=== PATIENT | female | born 1990 | race Asian ===

== ENCOUNTER 2016-10-11 14:50 | Emergency (ER) | payer OTHER ==
[2016-10-11] MEDS ORDERED: Adenosine* 3 MG/ML VIAL ONE (15:05)
[2016-10-11] MEDS ORDERED: NS 0.9% 1000 ML* 1,000 ML IV ONE (15:18)
[2016-10-11] MEDS ORDERED: Adenosine SYRINGE* 6 MG/2 ML IV PUSH ONE (15:18)
[2016-10-11] MEDS ORDERED: Adenosine* 3 MG/ML VIAL IV PUSH ONE (15:19)
[2016-10-11 15:26] LABS: Hematocrit 42 % (35-47); Mean Corpuscular HGB Conc 34 g/dl (31-36); Mean Corpuscular Hemoglobin 32 pg (27-31); Mean Corpuscular Volume 95 fL (80-97); Mean Platelet Volume 8 um3 (7.4-10.4); Red Blood Count 4.38 10^6/ul (4.0-5.4); Red Cell Distribution Width 12 % (10.5-15); White Blood Count 9.7 10^3/ul (3.5-10.8)
[2016-10-11 15:52] LABS: TSH (Thyroid Stimulating Horm) 0.96 mcIU/mL (0.34-5.60)
[2016-10-11 16:12] LABS: Albumin 4.3 g/dL (3.2-5.2); BUN/Creatinine Ratio 17.6 (8-20); Calcium 9.2 mg/dL (8.6-10.3); EGFR Non-African American 80.8 (>60); Globulin 3.3 g/dL (2-4); Potassium 3.7 mmol/L (3.5-5.0); Total Bilirubin 0.6 mg/dL (0.2-1.0); Total Protein 7.6 g/dL (6.4-8.9)
[2016-10-11 16:57] VITALS: BP 104/64
--- NOTE | 2016-10-11 18:07 | ED ---
Bam Vanessa Billy, scribed for Nolberto Ortiz MD on 10/11/16 at 1510 . Palpitations / Dysrhythmia - HPI Summary HPI Summary: Patient is a 25 year-old female coming to [facility] for evaluation of a rapid heart rate. 20 minutes prior to being seen in the ED, she states that she began feeling very unwell. She reports CP and SOB. She takes metoprolol and has a history of a similar previous episode. In fact, she has had intermittent episodes since she was a young child, although today is the worst that it has ever been. She is wearing an implantable monitor and sees Dr. Vallejo. - History of Current Complaint Chief Complaint: EDDysrhythmPalp Time Seen by Provider: 10/11/16 15:03 Hx Obtained From: Patient Onset/Duration: Gradual Onset Timing: Constant Severity Initially: Moderate Severity Currently: Moderate Character: Fast Aggravating: Nothing Alleviating: Nothing Associated Signs & Symptoms: Chest Pain, Shortness of Breath - Allergy/Home Medications Allergies/Adverse Reactions: Allergies Allergy/AdvReac Type Severity Reaction Status Date / Time Penicillins Allergy Unknown Verified 10/11/16 15:17 Reaction Details PMH/Surg Hx/FS Hx/Imm Hx Endocrine/Hematology History: Denies: Hx Diabetes Psychiatric History: Denies: Hx Eating Disorder, Hx of Violent Episodes Against Others - Immunization History Date of Tetanus Vaccine: UTD Date of Influenza Vaccine: unk Infectious Disease History: Denies: Traveled Outside the [place] in Last 30 Days - Family History Family History: Family history is negative for EtOH abuse. - Social History Alcohol Use: Weekly Alcohol Amount: 3-4 Substance Use Type: Reports: None Smoking Status (MU): Never Smoked Tobacco Review of Systems Positive: Palpitations, Chest Pain Positive: Shortness Of Breath All Other Systems Reviewed And Are Negative: Yes Physical Exam - Summary Physical Exam Summary: The patient is well-nourished in no acute distress and in no acute pain. The skin is warm and dry and skin color reflects adequate perfusion. HEENT: The head is normocephalic and atraumatic. The pupils are equal and reactive. The conjunctivae are clear and without drainage. Nares are patent and without drainage. Mouth reveals moist mucous membranes and the throat is without erythema and exudate. The external ears are intact. The ear canals are patent and without drainage. The tympanic membranes are intact. Neck is supple with full range of motion and non-tender. There are no carotid bruits. There is no neck vein distension. Respiratory: Chest is non-tender. Lungs are clear to auscultation and breath sounds are symmetrical and equal. Cardiovascular: Heart is tachycardic. There is no murmur or rub auscultated. There is no peripheral edema and pulses are symmetrical and equal. Abdomen: The abdomen is soft and non-tender. There are normal bowel sounds heard in all four quadrants and there is no organomegaly palpated. Musculoskeletal: There is no back pain noted. Extremities are non-tender with full range of motion. There is good capillary refill. There is no peripheral edema or calf tenderness elicited. Neurological: Patient is alert and oriented to person, place and time. The patient has symmetrical motor strength in all four extremities. Cranial nerves are grossly intact. Deep tendon reflexes are symmetrical and equal in all four extremities. Psychiatric: The patient has an appropriate affect and does not exhibit any anxiety or depression. Triage Information Reviewed: Yes Vital Signs On Initial Exam: Initial Vitals Temp Pulse Resp BP 97.7 F 213 20 148/96 10/11/16 14:56 10/11/16 14:56 10/11/16 14:56 10/11/16 14:56 Vital Signs Reviewed: Yes Diagnostics - Vital Signs Vital Signs Temp Pulse Resp BP 10/11/16 14:56 97.7 F 213 20 148/96 - Laboratory Lab Results: Lab Results 10/11/16 10/11/16 10/11/16 Range/Units 15:05 15:05 15:05 WBC 9.7 (3.5-10.8) 10^3/ul RBC 4.38 (4.0-5.4) 10^6/ul Hgb 14.0 (12.0-16.0) g/dl Hct 42 (35-47) % MCV 95 (80-97) fL MCH 32 H (27-31) pg MCHC 34 (31-36) g/dl RDW 12 (10.5-15) % Plt Count 321 (150-450) 10^3/ul MPV 8 (7.4-10.4) um3 Neut % (Auto) 52.0 (38-83) % Lymph % (Auto) 35.9 (25-47) % [place] % (Auto) 8.6 (1-9) % Eos % (Auto) 2.6 (0-6) % Baso % (Auto) 0.9 (0-2) % Absolute Neuts (auto) 5.0 (1.5-7.7) 10^3/ul Absolute Lymphs (auto) 3.5 (1.0-4.8) 10^3/ul Absolute Monos (auto) 0.8 (0-0.8) 10^3/ul Absolute Eos (auto) 0.2 (0-0.6) 10^3/ul Absolute Basos (auto) 0.1 (0-0.2) 10^3/ul Absolute Nucleated RBC 0.01 10^3/ul Nucleated RBC % 0.1 Sodium 136 (133-145) mmol/L Potassium 3.7 (3.5-5.0) mmol/L Chloride 104 (101-111) mmol/L Carbon Dioxide 22 (22-32) mmol/L Anion Gap 10 (2-11) mmol/L BUN 15 (6-24) mg/dL Creatinine 0.85 (0.51-0.95) mg/dL Est GFR ( Amer) 104.0 (>60) Est GFR (Non-Af Amer) 80.8 (>60) BUN/Creatinine Ratio 17.6 (8-20) Glucose 109 H (70-100) mg/dL Lactic Acid 1.9 (0.5-2.0) mmol/L Calcium 9.2 (8.6-10.3) mg/dL Magnesium 2.0 (1.9-2.7) mg/dL Total Bilirubin 0.60 (0.2-1.0) mg/dL AST 15 (13-39) U/L ALT 10 (7-52) U/L Alkaline Phosphatase 33 L (34-104) U/L Troponin I 0.00 (<0.04) ng/mL Total Protein 7.6 (6.4-8.9) g/dL Albumin 4.3 (3.2-5.2) g/dL Globulin 3.3 (2-4) g/dL Albumin/Globulin Ratio 1.3 (1-3) TSH 0.96 (0.34-5.60) mcIU/mL Result Diagrams: 10/11/16 15:05 10/11/16 15:05 Lab Statement: Any lab studies that have been ordered have been reviewed, and results considered in the medical decision making process. - EKG 1502 EKG Interpretation: SVT 207 bpm 1514 EKG Interpretation: Post-adenosine, NSR 90 bpm, normal QT interval Re-Evaluation - Re-Evaluation First Eval Re-Evaluation Time: 16:27 Change: Improved Comment: She is feeling much better at this time. Second Eval Re-Evaluation Time: 16:33 Comment: Consult with Dr. Hannon discussed with the patient, including his instructions to increased metoprolol dosage, restrict caffeine and alcohol consumption, and to follow up with Dr. Vallejo. The patient understands and agrees with the plan. Course/Dx - Course Assessment/Plan: 25 year-old female coming to the ED for evaluation of rapid heart rate. Carotid massages attempted, unsuccessful. Patient was given 6mg adenosine followed by 12mg adenosine for her rapid heart rate. She tolerated the procedure well and converted from SVT to NSR. She was placed on a monitor and observed for 90 minutes with no return of her symptoms. The case was discussed with Dr. Hannon from cardiology, who recommends for the patient to be discharged home with an increase in her metoprolol dosage. She is to avoid caffeine and alcohol consumption in the meantime, and she was instructed to follow up with Dr. Vallejo. These instructions were communicated to the patient , who voiced an understanding. - Diagnoses Differential Diagnosis/HQI/PQRI: Positive: Cardiomyopathy, Hypokalemia, Paroxymal SVT, Other - atrial fibrillation Provider Diagnoses: supraventricular tachycardia, resolved - Physician Notifications Discussed Care Of Patient With: Dr. Hannon (certified peer specialist) at 1625: recommends increasing metoprolol to 50mg ER, and to follow up with Dr. Vallejo. - Critical Care Time Critical Care Time: 30-74 min - 30 minutes Discharge - Discharge Plan Condition: Stable Disposition: HOME Prescriptions: Metoprolol Succinate XL TAB* [Toprol XL TAB*] 50 mg PO DAILY #30 tab.xl Patient Education Materials: Supraventricular Tachycardia (ED) Referrals: Zuri Florian DO [Primary Care Provider] - Additional Instructions: FOLLOW UP WITH DR. VALLEJO. DO NOT CONSUME CAFFEINE OR ALCOHOL IN THE MEANTIME. TAKE MEDICATIONS DIRECTED. INCREASE METOPROLOL TO 50 MG A DAY. The documentation as recorded by the akhilibBam santana Billy accurately reflects the service I personally performed and the decisions made by me, Nolberto Ortiz MD.
== END 2016-10-11 16:57 | disposition home or self-care (01) ==
LOC: ED 14:50
DX: I47.1 Supraventricular tachycardia (principal); Z88.0 Allergy status to penicillin
CPT/HCPCS: 36415; 80053; 83605; 83735; 84443; 84484; 85025; 93005; 96374; 96375; 99285; J0153

== ENCOUNTER 2017-04-17 12:24 | Emergency (ER) | payer OTHER ==
[2017-04-17] MEDS ORDERED: NS 0.9% 1000 ML* 2,000 ML IV ONE (13:10)
[2017-04-17 13:43] LABS: Hematocrit 41 % (35-47); Mean Corpuscular HGB Conc 34 g/dl (31-36); Mean Corpuscular Hemoglobin 33 pg (27-31); Mean Corpuscular Volume 96 fL (80-97); Mean Platelet Volume 8 um3 (7.4-10.4); Red Blood Count 4.28 10^6/ul (4.0-5.4); Red Cell Distribution Width 12 % (10.5-15)
[2017-04-17 13:59] LABS: ALT 19 U/L (7-52); Albumin 3.7 g/dL (3.2-5.2); Alkaline Phosphatase 25 U/L (34-104); BUN/Creatinine Ratio 13.9 (8-20); Blood Urea Nitrogen 10 mg/dL (6-24); CO2 Carbon Dioxide 23 mmol/L (22-32); Calcium 8.6 mg/dL (8.6-10.3); Chloride 108 mmol/L (101-111); EGFR Non-African American 97.2 (>60); Globulin 2.6 g/dL (2-4); Glucose 87 mg/dL (70-100); Magnesium 2.2 mg/dL (1.9-2.7); Sodium 137 mmol/L (133-145); Total Protein 6.3 g/dL (6.4-8.9)
[2017-04-17 14:25] LABS: Anion Gap 6 mmol/L (2-11)
[2017-04-17 14:38] LABS: TSH (Thyroid Stimulating Horm) 0.61 mcIU/mL (0.34-5.60)
--- NOTE | 2017-04-17 14:55 | ED ---
Jaswant Vanessa Thomas, scribed for Willi Mesa MD on 04/17/17 at 1324 . Palpitations / Dysrhythmia - HPI Summary HPI Summary: The pt is a 26 y/o F with a Hx of SVT BIBA after she had an episode of racing palpitations about an hour ago. The patient noted mild chest discomfort during this episode of palpitations. The patient attempted to resolve the palpitations with vagal maneuvers but she was unsuccessful. The palpitations resolved when she was given Adenosine 6mg by EMS at 12:09. The patient is on Metoprolol 50mg. She has been offered an ablation by her user interface engineer Dr. Zimmer, but the patient has not yet made a decision to schedule the surgery. - History of Current Complaint Chief Complaint: EDChestPainROMI Time Seen by Provider: 04/17/17 12:47 Hx Obtained From: Patient Onset/Duration: Lasting Hours - 1, Resolved Timing: Intermittent Episodes Lasting: Severity Currently: None Aggravating: Nothing Alleviating: Other - Adenosine Associated Signs & Symptoms: Vomiting - Mild chest discomfort - Allergy/Home Medications Allergies/Adverse Reactions: Allergies Allergy/AdvReac Type Severity Reaction Status Date / Time Penicillins Allergy Unknown Verified 10/11/16 15:17 Reaction Details PMH/Surg Hx/FS Hx/Imm Hx Previously Healthy: No Endocrine/Hematology History: Denies: Hx Diabetes Cardiovascular History: Reports: Hx Supraventricular Ventricular Tachycardia Psychiatric History: Denies: Hx Eating Disorder, Hx of Violent Episodes Against Others - Immunization History Date of Tetanus Vaccine: UTD Date of Influenza Vaccine: NO Infectious Disease History: No Infectious Disease History: Denies: Traveled Outside the [place] in Last 30 Days - Family History Known Family History: Positive: Other - neg: EToH abuse Family History: Family history is negative for EtOH abuse. - Social History Alcohol Use: Weekly Alcohol Amount: 3-4 Substance Use Type: Reports: None Smoking Status (MU): Never Smoked Tobacco Review of Systems Negative: Fever Positive: Palpitations, Other - Mild chest discomfort All Other Systems Reviewed And Are Negative: Yes Physical Exam - Summary Physical Exam Summary: VITAL SIGNS: Reviewed. GENERAL: Patient is a well-developed and nourished female who is lying comfortable in the stretcher. Patient is not in any acute respiratory distress. HEAD AND FACE: No signs of trauma. No ecchymosis, hematomas or skull depressions. No sinus tenderness. EYES: PERRLA, EOMI x 2, No injected conjunctiva, no nystagmus. EARS: Hearing grossly intact. Ear canals and tympanic membranes are within normal limits. MOUTH: Oropharynx within normal limits. NECK: Supple, trachea is midline, no adenopathy, no JVD, no carotid bruit, no c- spine tenderness, neck with full ROM. CHEST: Symmetric, no tenderness at palpation LUNGS: Clear to auscultation bilaterally. No wheezing or crackles. CVS: Regular rate and rhythm, S1 and S2 present, no murmurs or gallops appreciated. ABDOMEN: Soft, non-tender. No signs of distention. No rebound no guarding, and no masses palpated. Bowel sounds are normal. EXTREMITIES: FROM in all major joints, no edema, no cyanosis or clubbing. NEURO: Alert and oriented x 3. No acute neurological deficits. Speech is normal and follows commands. SKIN: Dry and warm Triage Information Reviewed: Yes Vital Signs On Initial Exam: Initial Vitals Temp Pulse Resp BP Pulse Ox 98.5 F 83 17 97/78 98 04/17/17 12:29 04/17/17 12:29 04/17/17 12:29 04/17/17 12:29 04/17/17 12:29 Vital Signs Reviewed: Yes - Michael Coma Scale Coma Scale Total: 15 Diagnostics - Vital Signs Vital Signs Temp Pulse Resp BP Pulse Ox 04/17/17 12:36 83 13 99 04/17/17 12:32 97/78 04/17/17 12:29 98.5 F 83 17 97/78 98 - Laboratory Result Diagrams: 04/17/17 13:33 04/17/17 13:33 Lab Statement: Any lab studies that have been ordered have been reviewed, and results considered in the medical decision making process. - EKG 12:37 Cardiac Rate: NL EKG Rhythm: Sinus Rhythm EKG Interpretation: 87 BPM. Normal axis. Normal intervals. No ischemic changes. Course/Dx - Course Assessment/Plan: The pt is a 26 y/o F with a Hx of SVT BIBA after she had an episode of racing palpitations about an hour ago. The patient noted mild chest discomfort during this episode of palpitations. The patient attempted to resolve the palpitations with vagal maneuvers but she was unsuccessful. The palpitations resolved when she was given Adenosine 6mg by EMS at 12:09. The patient is on Metoprolol 50mg. She has been offered an ablation by her user interface engineer Dr. Zimmer, but the patient has not yet made a decision to schedule the surgery. In the ED course the patient was given IV fluids. Bloodwork and EKG were obtained. The patient is diagnosed with SVT. The patient is instructed to follow up with cardiology. Patient instructed to keep taking metoprolol. - Diagnoses Provider Diagnoses: SVT (supraventricular tachycardia) Discharge - Discharge Plan Condition: Stable Disposition: HOME Patient Education Materials: Supraventricular Tachycardia (ED) Referrals: Zuri Florian DO [Primary Care Provider] - If Needed Steph Zimmer MD [Medical Doctor] - 3 Days Additional Instructions: Follow up with your user interface engineer in three days. Keep taking your metoprolol. The documentation as recorded by the Jaswant albarran Thomas accurately reflects the service I personally performed and the decisions made by me, Willi Mesa MD.
[2017-04-17 15:03] VITALS: BP 108/67
== END 2017-04-17 15:11 | disposition home or self-care (01) ==
LOC: ED 12:24
DX: I47.1 Supraventricular tachycardia (principal); R00.2 Palpitations; R11.10 Vomiting, unspecified
CPT/HCPCS: 36415; 80053; 83735; 84443; 84484; 84702; 85025; 93005; 96360; 99283

== ENCOUNTER 2017-09-09 21:29 | Emergency (ER) | payer OTHER ==
[2017-09-09 21:41] VITALS: BP 108/82
[2017-09-09] MEDS ORDERED: predniSONE TAB* 20 MG PO ONE (21:52)
--- NOTE | 2017-09-09 21:57 | UC ---
Estefany Vanessa Gabriel, scribed for Dieudonne Puri MD on 09/09/17 at 2154 . Allergic Reaction HPI - HPI Summary HPI Summary: This patient is a 26 year old F presenting to [facility] accompanied by her partner with a chief complaint of swollen lip since 1800 today. The patient rates the pain 4/10 in severity. Pt took one Benadryl two hours ago. Patient denies trouble breathing and swallowing. This has happened once before and it lasted several days, it happens once a month. She gets hives often and takes antihistamines often. - History of Current Complaint Chief Complaint: UCSkin Stated Complaint: SWOLLEN LIPS Hx Obtained From: Patient Hx Last Menstrual Period: control Onset/Duration: Still Present Severity Initially: Mild Severity Currently: Mild Pain Intensity: 4 Pain Scale Used: 0-10 Numeric Location: Discrete @ - lips Alleviating Factor(s): Antihistamines Associated Signs And Symptoms: Positive: Negative - trouble breathing and swallowing - Allergies/Home Medications Allergies/Adverse Reactions: Allergies Allergy/AdvReac Type Severity Reaction Status Date / Time MS Penicillins [Penicillins] Allergy Unknown Verified 09/09/17 21:41 Reaction Details Penicillins Allergy Unknown Verified 09/09/17 21:49 Reaction Details Home Medications: Home Medications Cetirizine* [ZyrTEC 10 MG TAB*] 10 mg PO EVERY OTHER DAY 09/09/17 [History Confirmed 09/09/17] Loratadine [Claritin 10 MG CAP] 10 mg PO EVERY OTHER DAY PRN 09/09/17 [History Confirmed 09/09/17] diPHENhydraMINE PO* [Benadryl PO 25 MG TAB*] 25 mg PO Q6H PRN 09/09/17 [History Confirmed 09/09/17] PMH/Surg Hx/FS Hx/Imm Hx Cardiovascular History: Other Other Cardiovascular History: tachycardia Psychological History: Depression Other History Of: Negative For: Anticoagulant Therapy - Surgical History Surgical History: None - Family History Known Family History: Positive: Other - neg: EToH abuse Negative: Renal Disease, Respiratory Disease, Seizure Disorder Family History: Family history is negative for EtOH abuse. - Social History Occupation: Employed Full-time Lives: With Family Alcohol Use: Weekly Alcohol Amount: 3-4 Substance Use Type: None Smoking Status (MU): Never Smoked Tobacco Review of Systems Skin: Other - lips are swollen Respiratory: Negative - trouble breathing All Other Systems Reviewed And Are Negative: Yes Physical Exam - Summary Physical Exam Summary: General: well-appearing, no pain distress Skin: warm, color reflects adequate perfusion, dry Head: normal Eyes: EOMI, IVAN ENT: lips are swollen Neck: supple, nontender Respiratory: CTA, breath sounds present Cardiovascular: RRR Abdomen: soft, nontender Bowel: present Musculoskeletal: normal, strength/ROM intact Neurological: normal, sensory/motor intact, A&O x3 Psychological: affect/mood appropriate Triage Information Reviewed: Yes Vital Signs: Initial Vital Signs Temp 97.4 F 09/09/17 21:32 Pulse 81 09/09/17 21:32 Resp 16 09/09/17 21:32 BP 108/82 09/09/17 21:32 Pulse Ox 98 09/09/17 21:32 Vital Signs Reviewed: Yes Allergic Reaction Course/Dx - Course Course Of Treatment: NO EVIDENCE OF AIRWAY INVOLEMENT. F/U [facility]. GO TO ED IF WORSE. - Differential Dx/Diagnosis Provider Diagnoses: ALLERGIC REACTION Discharge - Sign-Out/Discharge Documenting (check all that apply): Discharge/Admit/Transfer - Discharge Plan Condition: Stable Disposition: HOME Prescriptions: predniSONE TAB* [Deltasone TAB*] 60 mg PO DAILY #12 tab Patient Education Materials: General Allergic Reaction (ED) Referrals: Zuri Florian DO [Primary Care Provider] - Additional Instructions: FOLLOW UP WITH YOUR DOCTOR. TAKE BENADRYL 50MG EVERY 6 HOURS NEEDED. TAKE YOUR ZANTAC DIRECTED. TAKE THE PREDNISONE DIRECTED NEEDED. GO TO THE EMERGENCY DEPARTMENT FOR ANY WORSENING OF YOUR CONDITION; DIFFICULTY SWALLOWING OR BREATHING, YOU FEEL ILL OR QUESTIONS OR CONCERNS. - Billing Disposition and Condition Condition: STABLE Disposition: HOME The documentation as recorded by the Estefany albarran Gabriel accurately reflects the service I personally performed and the decisions made by me, Dieudonne Puri MD.
== END 2017-09-09 22:05 | disposition home or self-care (01) ==
LOC: UCEAST 21:29
DX: T78.40XA Allergy, unspecified, initial encounter (principal); Z88.0 Allergy status to penicillin
CPT/HCPCS: 99212; G0463; J7512

== ENCOUNTER 2018-01-14 13:45 | Emergency (ER) | payer OTHER ==
[2018-01-14 14:32] LABS: ABS Basophils 0 10^3/ul (0-0.2); ABS Eosinophils 0.1 10^3/ul (0-0.6); ABS Lymphocytes 2.2 10^3/ul (1.0-4.8); ABS Monocytes 0.6 10^3/ul (0-0.8); ABS Neutrophils 6.4 10^3/ul (1.5-7.7); ABS Nucleated RBC 0 10^3/ul; Eosinophil % 1.2 % (0-6); Hematocrit 42 % (35-47); Hemoglobin 14.4 g/dl (12.0-16.0); Lymphocyte % 23.5 % (25-47); Mean Corpuscular HGB Conc 34 g/dl (31-36); Mean Corpuscular Hemoglobin 33 pg (27-31); Mean Corpuscular Volume 97 fL (80-97); Mean Platelet Volume 7.8 um3 (7.4-10.4); Nucleated Red Blood Cells % 0.1; Platelet Count 280 10^3/ul (150-450); Red Blood Count 4.32 10^6/ul (4.00-5.40); Red Cell Distribution Width 13 % (10.5-15); White Blood Count 9.4 10^3/ul (3.5-10.8)
[2018-01-14 14:47] LABS: Urine Appearance Clear; Urine Blood Negative (Negative); Urine Color Straw; Urine Ketones Trace (Negative); Urine Protein Negative (Negative); Urine Specific Gravity 1.004 (1.010-1.030); Urine Urobilinogen Negative (Negative)
[2018-01-14 15:02] LABS: EGFR Non-African American 90.6 (>60)
[2018-01-14 15:33] VITALS: BP 120/82
--- NOTE | 2018-01-14 16:01 | ED ---
Palpitations / Dysrhythmia - HPI Summary HPI Summary: Pt is a 27 y/o female BIBA who presents to the ED c/o tachycardia. She has SVT, and EMS found her with a HR of 190 bpm. Pt is on Metoprolol, but did not take her medications yet today. Adenosine given by EMS helped slow her HR. Pt denies any fever, chills, blurred vision, diplopia, sore throat, ear ache, SOB, abdominal pain, hematochezia, hematuria, LE edema, rash, bruising, headache, anxiety, or depression. - History of Current Complaint Chief Complaint: EDGeneral Hx Obtained From: Patient, EMS Onset/Duration: Sudden Onset, Resolved Character: Fast - 190 bpm Aggravating: Nothing Alleviating: Medication - Adenosine - Allergy/Home Medications Allergies/Adverse Reactions: Allergies Allergy/AdvReac Type Severity Reaction Status Date / Time MS Penicillins [Penicillins] Allergy Unknown Verified 09/09/17 21:41 Reaction Details Penicillins Allergy Unknown Verified 09/09/17 21:49 Reaction Details PMH/Surg Hx/FS Hx/Imm Hx Endocrine/Hematology History: Denies: Hx Anticoagulant Therapy, Hx Diabetes Cardiovascular History: Reports: Hx Supraventricular Ventricular Tachycardia Psychiatric History: Reports: Hx Depression - with SI Denies: Hx Eating Disorder, Hx of Violent Episodes Against Others - Surgical History Surgery Procedure, Year, and Place: NO cardiac ablation - Immunization History Date of Tetanus Vaccine: UTD Date of Influenza Vaccine: NO Immunizations Up to Date: Yes Infectious Disease History: No Infectious Disease History: Denies: Traveled Outside the [place] in Last 30 Days - Family History Known Family History: Positive: Other - neg: EToH abuse Negative: Renal Disease, Respiratory Disease, Seizure Disorder - Social History Alcohol Use: Weekly Alcohol Amount: 3-4 Hx Substance Use: No Substance Use Type: Reports: None Hx Tobacco Use: Yes Smoking Status (MU): Former Smoker Review of Systems Negative: Fever, Chills Negative: Blurred Vision, Diplopia Negative: Sore Throat, Ear Ache Positive: Palpitations Negative: Shortness Of Breath Negative: Abdominal Pain, Other - Hematochezia Negative: hematuria Negative: Edema Negative: Rash, Bruising Negative: Headache Negative: Anxious, Depressed All Other Systems Reviewed And Are Negative: No Physical Exam - Summary Physical Exam Summary: Appearance: Alert, conversive, nontoxic appearing Skin: Warm, dry, no mottling, no rashes, no contusions HEENT: EOMI, PERRL, moist mucous membranes Neck: No masses on the neck, supple Respiratory: Clear to auscultation, breath sounds present, no rales, no rhonchi , no wheezes Cardiovascular: RRR, pulses are symmetrical in both lower and upper extremities Abdomen: Soft, non-tender Bowel Sounds: Present Musculoskeletal: No CVA tenderness, no obvious deformity, moving all extremities in a grossly normal manner Neurological: A&Ox3, CN II-XII Intact, moving all extremities symmetrically Psychiatric: Normal affect and mood Triage Information Reviewed: Yes Vital Signs On Initial Exam: Initial Vitals Temp Pulse Resp BP Pulse Ox 97.9 F 87 16 112/74 97 01/14/18 13:52 01/14/18 13:52 01/14/18 13:52 01/14/18 13:52 01/14/18 13:52 Vital Signs Reviewed: Yes Diagnostics - Vital Signs Vital Signs Temp Pulse Resp BP Pulse Ox 01/14/18 15:27 100 20 120/82 100 01/14/18 13:52 97.9 F 87 16 112/74 97 - Laboratory Lab Results: Lab Results 01/14/18 01/14/18 01/14/18 Range/Units 14:25 14:25 14:38 WBC 9.4 (3.5-10.8) 10^3/ul RBC 4.32 (4.00-5.40) 10^6/ul Hgb 14.4 (12.0-16.0) g/dl Hct 42 (35-47) % MCV 97 (80-97) fL MCH 33 H (27-31) pg MCHC 34 (31-36) g/dl RDW 13 (10.5-15) % Plt Count 280 (150-450) 10^3/ul MPV 7.8 (7.4-10.4) um3 Neut % (Auto) 68.0 (38-83) % Lymph % (Auto) 23.5 L (25-47) % [place] % (Auto) 6.8 (0-7) % Eos % (Auto) 1.2 (0-6) % Baso % (Auto) 0.5 (0-2) % Absolute Neuts (auto) 6.4 (1.5-7.7) 10^3/ul Absolute Lymphs (auto) 2.2 (1.0-4.8) 10^3/ul Absolute Monos (auto) 0.6 (0-0.8) 10^3/ul Absolute Eos (auto) 0.1 (0-0.6) 10^3/ul Absolute Basos (auto) 0 (0-0.2) 10^3/ul Absolute Nucleated RBC 0 10^3/ul Nucleated RBC % 0.1 Sodium 136 (135-145) mmol/L Potassium 4.0 (3.5-5.0) mmol/L Chloride 105 (101-111) mmol/L Carbon Dioxide 22 (22-32) mmol/L Anion Gap 9 (2-11) mmol/L BUN 11 (6-24) mg/dL Creatinine 0.76 (0.51-0.95) mg/dL Est GFR ( Amer) 109.6 (>60) Est GFR (Non-Af Amer) 90.6 (>60) BUN/Creatinine Ratio 14.5 (8-20) Glucose 88 (70-100) mg/dL Calcium 9.0 (8.6-10.3) mg/dL Magnesium 2.1 (1.9-2.7) mg/dL Total Bilirubin 1.00 (0.2-1.0) mg/dL AST 19 (13-39) U/L ALT 13 (7-52) U/L Alkaline Phosphatase 42 (34-104) U/L Total Protein 7.3 (6.4-8.9) g/dL Albumin 4.3 (3.2-5.2) g/dL Globulin 3.0 (2-4) g/dL Albumin/Globulin Ratio 1.4 (1-3) TSH 0.76 (0.34-5.60) mcIU/mL Beta HCG, Quant < 0.60 mIU/mL Urine Color Straw Urine Appearance Clear Urine pH 7.0 (5-9) Ur Specific [place] 1.004 L (1.010-1.030) Urine Protein Negative (Negative) Urine Ketones Trace A (Negative) Urine Blood Negative (Negative) Urine Nitrate Negative (Negative) Urine Bilirubin Negative (Negative) Urine Urobilinogen Negative (Negative) Ur Leukocyte Esterase Negative (Negative) Urine Glucose Negative (Negative) Result Diagrams: 01/14/18 14:25 01/14/18 14:25 Lab Statement: Any lab studies that have been ordered have been reviewed, and results considered in the medical decision making process. - EKG 13:56 Cardiac Rate: NL - 89 bpm EKG Rhythm: Sinus Rhythm EKG Interpretation: Left atrial enlargement, nl QRS, nl QTc, nl axis Course/Dx - Course Course Of Treatment: Pt is a 27 y/o female BIBA who presents to the ED c/o tachycardia. She has SVT, and EMS found her with a HR of 190 bpm. Pt is on Metoprolol, but did not take her medications yet today. Adenosine given by EMS helped slow her HR. Pt denies any fever, chills, blurred vision, diplopia, sore throat, ear ache, SOB, abdominal pain, hematochezia, hematuria, LE edema, rash, bruising, headache, anxiety, or depression. A physical exam was normal. An EKG revealed normal rate of 89 bpm, nl GRS, nl QTc, left atrial enlargement, and nl axis. Final dx is SVT. Pt will be discharged and is agreeable with this plan. - Diagnoses Provider Diagnoses: SVT (supraventricular tachycardia) Discharge - Sign-Out/Discharge Documenting (check all that apply): Patient Departure - Discharge - Discharge Plan Condition: Stable Disposition: HOME Patient Education Materials: Supraventricular Tachycardia (ED) Referrals: [facility] [Primary Care Provider] - Additional Instructions: please take all medications as previously instructed. It is important to follow up with your primary care physician next week. - Billing Disposition and Condition Condition: STABLE Disposition: Home - Attestation Statements Document Initiated by Scribe: Yes Documenting Scribe: Priyanka Núñez Provider For Whom Ciera is Documenting (Include Credential): Penelope Reynolds MD Scribe Attestation: Priyanka Vanessa, scribed for Penelope Reynolds MD on 01/14/18 at 1611. Scribe Documentation Reviewed: Yes Provider Attestation: The documentation as recorded by the Priyanka albarran accurately reflects the service I personally performed and the decisions made by me, Penelope Reynolds MD
== END 2018-01-14 16:04 | disposition home or self-care (01) ==
LOC: ED 13:45
DX: I47.1 Supraventricular tachycardia (principal); I51.7 Cardiomegaly; Z79.899 Other long term (current) drug therapy; Z87.891 Personal history of nicotine dependence; Z88.0 Allergy status to penicillin
CPT/HCPCS: 36415; 80053; 81003; 83735; 84443; 84702; 85025; 93005; 99283

== ENCOUNTER 2018-09-15 10:48 | Day surgery (SDC) | payer OTHER ==
--- NOTE | 2018-09-09 12:43 | HP ---
PREOPERATIVE HISTORY AND PHYSICAL: DATE OF SURGERY/ADMISSION: 09/15/18 DATE OF OFFICE VISIT/ENCOUNTER: 09/07/18 ATTENDING SURGEON: Mary Culp MD* (dictated by JOSE L Kc). PROCEDURE: Excision mass, right wrist. GERIATRICS PHYSICIAN: Dr. Zimmer. HISTORY OF PRESENT ILLNESS: This is a 27-year-old female who has a painful mass on the dorsal aspect of her right wrist. It has been bothering her for a few months to a year. She does not recall specific injury. This is her dominant hand. She says it hurts when she bears weight, particularly when her wrist is extended. She had an MRI which shows a dorsal wrist ganglion cyst. She denies any associated numbness or tingling. She would like to have the mass removed. She is followed by Dr. Zimmer for heart palpitations and history of supraventricular tachycardia. She has an implanted event monitor and takes Toprol. There has been a discussion recently with Dr. Zimmer for removal of the implant because the patient has been doing well on Toprol. We will receive clearance from Dr. Zimmer prior to proceeding with surgery. PAST MEDICAL HISTORY: Paroxysmal supraventricular tachycardia. PAST SURGICAL HISTORY: Implantation of heart monitor approximately 4 years ago. CURRENT MEDICATIONS: 1. control 1 tab daily. 2. Fish oil 1 tab daily. 3. Melatonin 10 mg daily. 4. Toprol XL 50 mg daily. 5. Zyrtec Allergy 10 mg daily. 6. Magnesium. 7. Aspirin 81 mg daily. ALLERGIES: PENICILLIN, reaction unknown. Also has allergies to cats and guinea pigs. FAMILY MEDICAL HISTORY: Heart disease, hypertension, and stroke. 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 She is a former smoker, she says she quit several months ago, prior to that she smoked quite irregularly, more on a social basis. She denies recreational drug use. She drinks alcohol on regular occasion. REVIEW OF SYSTEMS: Negative for general, cephalic, cardiovascular, respiratory , GI, , other musculoskeletal, integumentary, endocrine, neurologic, and hematologic symptoms. Infectious Disease: Negative for MRSA, hepatitis C, HIV. PHYSICAL EXAMINATION GENERAL: Well-developed, well-nourished 27-year-old female, in no acute distress. VITAL SIGNS: Height 5 feet 2 inches, weight 121 pounds, pulse rate 65, blood pressure 90/68. HEENT: Normocephalic and atraumatic. Pupils are equal, round, and reactive to light and accommodation. Extraocular movements are intact. Throat is clear. NECK: Supple. No palpable lymph nodes. PULMONARY: Lungs are clear to auscultation bilaterally. No wheezes, rales, or rhonchi. CARDIOVASCULAR: Regular rate and rhythm. S1 and S2. No murmurs, rubs, or gallops. No edema. ABDOMEN: Positive bowel sounds. Soft, nontender. NEUROLOGIC: Alert and oriented x3. Cranial nerves II through XII are intact. Sensation is intact to light touch. MUSCULOSKELETAL: On exam of her right wrist, she has a palpable cystic mass at the dorsal radiocarpal joint. She has full range of motion of both wrists, but feels a strain at the extreme of flexion and pain with wrist extension on the right. Neurovascular function is intact. Skin is intact. IMAGING STUDIES: MRI shows a dorsal wrist ganglion. IMPRESSION: Right wrist ganglion cyst. PLAN/RECOMMENDATIONS: The patient is scheduled to undergo an excision mass, right wrist with Dr. Culp on 09/15/18. She will return to the office 10 days postop for followup and suture removal. A prescription for Ultracet was e- scribed to the patient's pharmacy for postoperative pain management. We will receive clearance from the patient's caramel candy maker, Dr. Zimmer prior to proceeding with surgery. JOSE L KC [id number]/[facility] #: [id number] [facility] HOSPITALTonio
[~2018-09-15 10:48] MED LIST: Buffered Lidocaine 1% SYRIN* 1 ML/SYRINGE INTRADERM ONE; Dexamethasone TAB* 4 MG PO ONE; Famotidine IV* 10 MG/ML 2 ML (20 mg) IV ONE; Lactated Ringers 1000 ML Bag* 1,000 ML IV SCH; Ondansetron TAB* 4 MG PO ONE
[2018-09-15] MEDS ORDERED: Ondansetron ODT TAB* 4 MG ONE (11:24)
[2018-09-15] MEDS ORDERED: Famotidine IV* 10 MG/ML 2 ML (20 mg) ONE (11:24)
[2018-09-15] MEDS ORDERED: Dexamethasone TAB* 4 MG ONE (11:24)
[2018-09-15] MEDS ORDERED: Lidocaine 1% INJ* 10 MG/ML 30 ML SDV ONE (12:11)
[2018-09-15] MEDS ORDERED: Midazolam* 1 MG/ML 2 ML VIAL (2 MG) ONE (12:26)
[2018-09-15] MEDS ORDERED: Propofol* 10 MG/ML 20 ML BTL ONE (12:33)
[2018-09-15] MEDS ORDERED: Naloxone* 0.4 MG/ML 1 ML VIAL IV PRN (12:42)
[2018-09-15] MEDS ORDERED: fentaNYL* 50 MCG/ML 2 ML VIAL (100 MCG VIAL) IV PRN (12:42)
[2018-09-15] MEDS ORDERED: Ondansetron INJ* 2 MG/ML VIAL IV PRN (12:42)
[2018-09-15] MEDS ORDERED: oxyCODONE/Acetamin 5/325 MG* TAB PO PRN (12:42)
[2018-09-15 13:14] VITALS: BP 104/63
--- NOTE | 2018-09-15 14:12 | OP ---
DATE OF OPERATION: 09/15/18 [facility] DATE OF : 88 SURGEON: Mary Culp MD ANIME DESIGNER: JOSE L Kc ANESTHESIA: Local MAC. PRE-OP DIAGNOSIS: Right dorsal wrist mass. POST-OP DIAGNOSIS: Right dorsal wrist mass. OPERATIVE PROCEDURE: Removal right wrist mass. ESTIMATED BLOOD LOSS: Zero. TOURNIQUET TIME: Approximately 10 minutes. INDICATION FOR PROCEDURE: Ingrid is a 27-year-old female with a painful mass on the dorsal aspect of her right wrist, she presents for removal. DESCRIPTION OF PROCEDURE: The patient was brought to the operating room and was given a sedation anesthetic and a local infiltration of 10 cc of 1% plain lidocaine in the dorsal aspect of her right wrist. Skin of her right upper extremity was prepped and draped in the usual sterile fashion. The hand and forearm were exsanguinated and the tourniquet elevated to 250 mmHg. A transverse incision was made, centered over the mass. We dissected through the subcutaneous tissue down to the ganglion cyst which was emanating from the wrist joint capsule. It was removed with a small portion of the wrist joint capsule overlying the scapholunate ligament. The edges of the capsule and the dorsal aspect of the scapholunate ligament were cauterized with the Bovie. The wound was irrigated and the skin edges reapproximated with 4-0 nylon suture. The wound was dressed with Xeroform, 4x4, Webril, and an Steve wrap. The patient tolerated the procedure well and was brought to the recovery room in good condition. [id number]/[facility] #: [id number] MTDTonio
== END 2018-09-15 13:50 | disposition home or self-care (01) ==
LOC: OREAST 10:48
PROVIDERS: ATTEND Orthopaedic Surgery
DX: M67.431 Ganglion, right wrist (principal); I47.1 Supraventricular tachycardia
CPT/HCPCS: 81025; 88304; A9270-GY; J2250; J2704; J8540